=== PATIENT | male | born 1965 | race Caucasian/White ===

== ENCOUNTER 2018-05-20 19:32 | Observation (INO) | payer SELFPAY ==
--- NOTE | 2018-05-20 19:49 | ED ---
HPI Chest Pain - HPI Summary HPI Summary: A 53 y/o male BIBA to the ED c/o CP since 1.5 hours ago. Per EMS he looked pale on site and took Aspirin. He also c/o SOB. He was home sitting down watching TV when the pain started. The patient felt clammy and like his heart was racing. He rates his pain currently as a 1/10. The Pt has a Hx of HTN. He has a FHx of [place]. He quit smoking in 2006. He has been admitted to the hospital with similar symptoms in the past, the last being 5 years ago. 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, EMS Onset/Duration: Started Hours Ago Timing: Constant Initial Severity: Moderate Current Severity: Moderate Pain Intensity: 1 Pain Scale Used: 0-10 Numeric Associated Signs and Symptoms: Positive: Chest Pain, Shortness of Breath - Allergy/Home Medications Allergies/Adverse Reactions: Allergies Allergy/AdvReac Type Severity Reaction Status Date / Time No Known Allergies Allergy Verified 05/20/18 19:56 Home Medications: Home Medications Gabapentin 600 mg PO TID 05/20/18 [History Confirmed 05/20/18] Lisinopril TAB* [Prinivil TAB*] 10 mg PO DAILY 05/20/18 [History Confirmed 05/20] PMH/Surg Hx/FS Hx/Imm Hx Cardiovascular History: Reports: Hx Hypertension Sensory History: Denies: Hx Deafness - Family History Known Family History: Positive: Cardiac Disease - Social History Smoking Status (MU): Former Smoker - quit in 2006 Review of Systems Positive: Skin Diaphoresis. Negative: Fever Positive: Chest Pain, Other - Positive: felt tachycardic Positive: Shortness Of Breath All Other Systems Reviewed And Are Negative: Yes Physical Exam - Summary Physical Exam Summary: Appearance: Well-appearing, Well-nourished, lying in bed comfortable Skin: Warm, dry, no obvious rash Eyes: sclera anicteric, no conjunctival pallor ENT: mucous membranes moist Neck: deferred Respiratory: No signs of respiratory distress Cardiovascular: Appears well perfused, pulses are nml Abdomen: deferred Musculoskeletal: Moving all 4 extremities without obvious discomfort Neurological: Awake and alert, mentation is normal, speech is fluent and appropriate Psychiatric: affect is normal, does not appear anxious or depressed Triage Information Reviewed: Yes Vital Signs Reviewed: Yes Diagnostics - Laboratory Result Diagrams: 05/20/18 20:11 05/20/18 20:11 Lab Statement: Any lab studies that have been ordered have been reviewed, and results considered in the medical decision making process. - Radiology CXR Radiology Interpretation Completed By: ED Physician - No acute disease. Pending official radiology report. Chest Pain Course/Dx - Course Course Of Treatment: A 53 y/o male BIBA to the ED c/o CP since 1.5 hours ago. Per EMS he looked pale on site and took Aspirin. He also c/o SOB. He was home sitting down watching TV when the pain started. The patient felt clammy and like his heart was racing. He rates his pain currently as a 1/10. The Pt has a Hx of HTN. He has a FHx of [place]. He quit smoking in 2006. He has been admitted to the hospital with similar symptoms in the past, the last being 5 years ago. His CXR revealed no acute disease. The patient has a diagnosis of CP. The patient will be admitted. The pt is agreeable with this plan. - Diagnoses Provider Diagnoses: Chest pain Discharge - Discharge Plan Condition: Fair Disposition: ADMITTED TO [facility] - Attestation Statements Document Initiated by Scribe: Yes Documenting Scribe: James Arambula Provider For Whom Nora is Documenting (Include Credential): Juan Farias MD Scribe Attestation: James Payan, scribed for Juan Farias MD on 05/21/18 at 0121.
[2018-05-20 20:19] LABS: ABS Basophils 0.1 10^3/ul (0-0.2); ABS Eosinophils 0.1 10^3/ul (0-0.6); ABS Lymphocytes 2.3 10^3/ul (1.0-4.8); ABS Monocytes 0.8 10^3/ul (0-0.8); ABS Neutrophils 5.6 10^3/ul (1.5-7.7); ABS Nucleated RBC 0 10^3/ul; Eosinophil % 1.1 % (0-6); Hematocrit 44 % (42-52); Hemoglobin 15.1 g/dl (14.0-18.0); Lymphocyte % 25.7 % (25-47); Mean Corpuscular HGB Conc 35 g/dl (31-36); Mean Corpuscular Hemoglobin 31 pg (27-31); Mean Corpuscular Volume 88 fL (80-94); Mean Platelet Volume 8.2 um3 (7.4-10.4); Nucleated Red Blood Cells % 0.4; Platelet Count 172 10^3/ul (150-450); Red Blood Count 4.97 10^6/ul (4.00-5.40); Red Cell Distribution Width 14 % (10.5-15); White Blood Count 8.9 10^3/ul (3.5-10.8)
[2018-05-20 20:40] LABS: EGFR Non-African American 88.7 (>60)
[2018-05-21] MEDS ORDERED: Nitroglycerin TAB 0.4 MG* 0.4 MG TAB SL PRN (00:10)
--- NOTE | 2018-05-21 02:27 | HP ---
CC: Isabel Lazaro NP * HISTORY AND PHYSICAL: DATE OF ADMISSION: 05/20/18 PRIMARY CARE PROVIDER: Isabel Lazaro NP, [facility], [place]. CHIEF COMPLAINT: Chest pain. HISTORY OF PRESENT ILLNESS: Mr. Solomon is a 53-year-old male who has a past history of smoking up to 15 to 20 pack years, hypertension, and a very strong family history of early coronary artery disease who presented to the emergency room with sudden onset of chest pain on the evening of admission. The patient states that he had just finished dinner and suddenly began to feel somewhat sluggish. He states he then developed what was like somebody is sitting on his chest. He stated that he felt incredibly heavy. He noticed that his breathing was very shallow and rapid and he was having a difficult time catching his breath. He states that his heart felt like it was racing and his left arm felt numb. He states that he also had mild nausea, a clammy sensation, headache, and dizziness. 911 was contacted and in the ambulance, the patient received nitroglycerin and aspirin. He states after the nitroglycerin he gradually had improvement in his symptoms. He states that the discomfort began at approximately 6 p.m. and lasted to at least an hour and a half. He states the pain has completely gone at this point. He states he has never had anything to this extent. However, previously he did experience chest discomfort. He states , however, it was associated with severe palpitations related to drinking energy drinks. He also states that he had a stress test, but states that was greater than 5 years ago. The patient's family history is positive for his mom dying at the age of 42 of an [place], his brother dying at the age of 37 of an [place], a brother having a CVA in his 40s and his twin brother having an [place] at about the age of 50. PAST MEDICAL HISTORY: 1. Hypertension. 2. Palpitations. 3. Neuropathy. PAST SURGICAL HISTORY: 1. Right tibia surgery for fracture repair. 2. Two anterior approach neck surgeries. 3. Umbilical hernia repair. MEDICATIONS: 1. Lisinopril 10 mg p.o. daily. 2. Gabapentin 600 mg p.o. t.i.d. 3. Metoprolol - dose unknown. ALLERGIES: MORPHINE, which causes itchiness. FAMILY HISTORY: Mom at the age of 42 of coronary disease. Dad at age of 72 of an aneurysm. As above, the patient has 4 brothers. His twin brother had an [place] at the age of 50. He had a brother of an [place] at the age of 37 and a brother, who had a CVA in his mid 40s. SOCIAL HISTORY: The patient is a former smoker of one and a half packs per day for 15 to 20 years. He quit smoking in 2007. He does not drink alcohol. He works doing airport maintenance laborer. He is . He has 4 children. He indicates that his is his healthcare proxy. REVIEW OF SYSTEMS: A complete 11-system review of systems is obtained. Pertinent positives and negatives are as per HPI, and in addition, the patient states that his appetite has been somewhat poor over the last 1 week. He does admit to chronic abdominal discomfort and diarrhea. He also states that that he will occasionally choke or feel like he is struggling to swallow, but he believes it is related to his prior neck surgery and this has been getting better. PHYSICAL EXAMINATION GENERAL: The patient is a well-developed middle-aged male, seen sitting in the stretcher, in no acute distress. VITAL SIGNS: Blood pressure 132/80, pulse 56, respirations 19, temp 98.3, O2 sat 98% on room air. HEENT: Pupils are equal and round. Extraocular muscles are intact. Oropharynx is clear. Oral mucosa is moist. There is no submandibular, cervical , or supraclavicular adenopathy. Thyroid is not enlarged. No thyroid nodules are noted. PULMONARY: Lungs are clear to auscultation bilaterally. CARDIAC: Normal S1, S2. Regular rate and rhythm. I do not appreciate any murmurs. There is no lower extremity edema. ABDOMEN: Bowel sounds are present. Abdomen is soft, nontender, nondistended. MUSCULOSKELETAL: There is no cyanosis or clubbing of the digits. There is full active range of motion of all 4 extremities. SKIN: Warm and dry. There are no rashes. NEURO: Cranial nerves II through XII are grossly intact. Sensation is intact to light touch throughout. Strength is 5/5 and symmetric in both upper and lower extremities bilaterally. PSYCH: The patient is alert. He is oriented x3. Affect appears appropriate. DIAGNOSTIC STUDIES/LAB DATA: WBC 8.9, hemoglobin 15.1, hematocrit 44, platelets 172. Sodium 142, potassium 3.3, chloride 111, CO2 25, BUN 12, creatinine 0.89, glucose 107, calcium 8.8. Bilirubin 0.5, AST 19, ALT 28, alk phos 58, troponin 0.0 x2, albumin 3.8. EKG reveals normal sinus rhythm with nonspecific ST-T wave abnormalities. ASSESSMENT AND PLAN: Mr. Solomon is a 53-year-old male with the history of hypertension, past history of tobacco abuse and a very strong family history of early coronary artery disease who presents to the emergency room with complaints of chest pain that develops at rest. 1. Chest pain. Given the patient's symptoms as well as very strong history of early coronary artery disease. The patient will be admitted under observation status. He will receive a third troponin at 0200 on 05/21/18. Additionally, the patient will have an repeat EKG at that time. An exercise nuclear stress test will be ordered for 05/21/18. The patient has been instructed to notify nursing staff if he develops any recurrent chest discomfort. 2. Hypertension. The patient's blood pressure currently is under good control. He utilizes both lisinopril and metoprolol at home. We will continue his lisinopril for now, but hold his metoprolol dosing due to the exercise portion of a stress test. 3. Neuropathy. We will continue gabapentin 600 mg p.o. t.i.d. 4. DVT prophylaxis: According to the Adult Thrombosis Prophylaxis Risk Factor Assessment Guide, the patient has a total risk factor score of 2 making him moderate risk. Ambulation will utilized as DVT prophylaxis. 5. Code status is full. TIME SPENT: 55 minutes were spent admitting this patient. [id number]/[facility] #: [id number] TRAVIS
--- NOTE | 2018-05-21 08:08 | RAD ---
INDICATION: Chest pain COMPARISON: None. TECHNIQUE: Single AP portable view of the chest was obtained. FINDINGS: Image quality is compromised due to the relative inferiority of a portable chest x-ray. The heart and mediastinum exhibit normal size and contour. The lungs are grossly clear. There is no evidence of a large pleural effusion. Overlying the midline lower cervical spine is a plate and screw fixator and a prostatic intervertebral discs. IMPRESSION: No radiographic evidence for acute cardiopulmonary abnormality on this portable chest x-ray. R0
[2018-05-21] MEDS ORDERED: Aspirin 81 mg CHEW TAB* 81 MG TAB.CHEW PO SCH (09:00)
[2018-05-21] MEDS ORDERED: Lisinopril TAB* 10 MG PO SCH (09:00)
[2018-05-21] MEDS ORDERED: Gabapentin CAP(*) 300 MG PO SCH (09:00)
--- NOTE | 2018-05-21 12:54 | RAD ---
HISTORY: chest pain COMPARISONS: None TECHNIQUE: A 1 day stress/rest myocardial perfusion study was performed, with exercise stress. The exercise portion was performed using the Mario protocol, for a total METs of 12.8 . The stress portion was monitored by Dr. Mondragon. Gated SPECT imaging was performed, with CT-based attenuation correction DOSE: Stress: Technetium 99m tetrofosmin, 25.4 millicuries, injected at 12:07 PM on May 21, 2018 Rest: Technetium 99m tetrofosmin, 10.6 millicuries, injected at 7:10 AM on May 21, 2018 Pharmacologic agent: None FINDINGS: CARDIAC MONITORING: Maximum heart rate of 150 bpm, 91% of predicted EF: 70 % TID: 0.5 MOTION: Normal motion, with normal wall thickening. PERFUSION: There is a reversible perfusion defect on the polar maps of the attenuation corrected images along the anterior wall that is not appreciated on the planar images or on the non-attenuation corrected images and is felt to be artifactual. There are no definite fixed or reversible perfusion defects. OTHER: None IMPRESSION: NO DEFINITE FIXED OR REVERSIBLE PERFUSION DEFECTS. ASSESSMENT: LOW RISK. Based on imaging criteria from ACC/AHA 2002. Guideline Update for the Management of Patient's with Chronic Stable Angina, table 23. Noninvasive Risk Stratification.
[2018-05-21 13:53] VITALS: BP 137/87
[2018-05-21] MEDS ORDERED: Potassium Chlor TAB* 10 MEQ TAB.ER PO ONE (14:25)
--- NOTE | 2018-05-22 22:23 | PN ---
Subjective Date of Service: 05/21/18 Interval History: Patient denies chest pain or shortness of breath. Denies abd pain n/v/d. Denies fever or chills. Family History: Unchanged from Admission Social History: Unchanged from Admission Past Medical History: Unchanged from Admission Objective Oxygen Devices in Use Now: None Appearance: appears comfortable sititng in the bed, no acute distress. Eyes: No Scleral Icterus Ears/Nose/Mouth/Throat: Clear Oropharnyx, Mucous Membranes Moist Neck: NL Appearance and Movements; NL JVP Respiratory: Symmetrical Chest Expansion and Respiratory Effort, Clear to Auscultation Cardiovascular: NL Sounds; No Murmurs; No JVD, RRR, No Edema Abdominal: NL Sounds; No Tenderness; No Distention Extremities: No Edema, No Clubbing, Cyanosis Skin: No Rash or Ulcers Neurological: Alert and Oriented x 3, NL Muscle Strength and Tone Nutrition: Taking PO's Result Diagrams: 05/20/18 20:11 05/20/18 20:11 Assess/Plan/Problems-Billing Assessment: Mr. anna is a 53 y.o male wiht pmhx significant for htn who presented to the Er with chest pain. Inital troponins were negative and EKg without St changes. - Patient Problems (1) Chest pain Status: Acute Code(s): R07.9 - CHEST PAIN, UNSPECIFIED SNOMED Code(s): 86291569 Comment: -Troponins negative - no chest pain this AM - Nuclear stress - low risk - no reversible or perfusion defects suspect this could be related to GERD- would recommend follow up with PCP for further work up (2) HTN (hypertension) Status: Acute Code(s): I10 - ESSENTIAL (PRIMARY) HYPERTENSION SNOMED Code(s) : 02645015 Comment: stable continue home medications (3) Hypokalemia Status: Acute Code(s): E87.6 - HYPOKALEMIA SNOMED Code(s): 35678745 Comment: K+ 3.3 Given 40 meq kcl recommended increasing potassium in his diet (4) DVT prophylaxis Status: Acute Code(s): TRW8255 - SNOMED Code(s): 131423940 Comment: ambulate (5) Full code status Status: Acute Code(s): Z78.9 - OTHER SPECIFIED HEALTH STATUS SNOMED Code(s) : 722941367 Status and Disposition: discharge
== END 2018-05-21 16:14 | disposition home or self-care (01) ==
LOC: ED 19:32 → MEDTELE 05-21 00:54
PROVIDERS: ADMIT Hospitalist; ATTEND Internal Medicine
DX: R07.89 Other chest pain (principal); I10 Essential (primary) hypertension; R00.2 Palpitations; G62.9 Polyneuropathy, unspecified; Z87.891 Personal history of nicotine dependence; E87.6 Hypokalemia
CPT/HCPCS: 36415; 71045; 78452; 80053; 84484; 85025; 93005; 93017; 99284; A9270-GY; A9502; G0378